=== PATIENT | male | born 1960 | race Caucasian/White ===

== ENCOUNTER 2016-09-05 14:23 | Emergency (ER) | payer OTHER ==
[~2016-09-05] VITALS: Ht 175.3 cm; Wt 109.3 kg
[2016-09-05] MEDS ORDERED: LORAZEPAM INJ 2 MG/ML VIAL ONE (14:48)
[2016-09-05 14:53] LABS: BASOPHILS % (AUTO) 0.3 % (0.0-2.0); EOSINOPHILS # (AUTO) 0.2 /CMM (0.0-0.7); EOSINOPHILS % (AUTO) 3.6 % (0.0-6.0); HEMATOCRIT 41 % (39-51); HEMOGLOBIN 13.8 g/dL (13.5-17.5); LYMPHOCYTES # (AUTO) 0.9 /CMM (0.8-4.8); LYMPHOCYTES % (AUTO) 21.5 % (20.0-44.0); MEAN CORPUSCULAR HEMOGLOBIN 32 PG (26.0-33.0); MEAN CORPUSCULAR HGB CONC 34 g/dl (31.0-36.0); MEAN CORPUSCULAR VOLUME 94 fL (80-96); MONOCYTES # (AUTO) 0.3 /CMM (0.1-1.30); MONOCYTES % (AUTO) 8.1 % (2.0-12.0); NEUTROPHILS # (AUTO) 2.8 /CMM (1.8-8.9); NEUTROPHILS % (AUTO) 66.5 % (43.0-81.0); PLATELET COUNT (AUTO) 103 /CMM (150-450); RDW COEFFICIENT OF VARIATION 14.5 (11.5-15.0); RED BLOOD CELL COUNT(AUTO) 4.38 MIL/uL (4.5-6.0); WHITE BLOOD COUNT (AUTO) 4.2 K/uL (4.3-11.0)
[2016-09-05] MEDS ORDERED: LORAZEPAM INJ 2 MG/ML VIAL IVP ONE (15:00)
--- NOTE | 2016-09-05 15:00 | NUR ---
PT BIB C/O "ALCOHOL WITHDRAWAL" INCLUDING FEELING SHAKEY, DIAPHORETIC, AND MILD SOB. SKIN MOIST AND WARM. RESP EVEN, MILDLY LABORED. O2 WNL ON ROOM AIR. PT REPORTS DRINKING 3-12 BEERS PER DAY. LAST DRINK WAS THIS MORNING, 1 BEER. AMBULATORY WITH STEADY GAIT. A/OX4. NO SEIZURE ACTIVITY NOTED. IN ER BED 08 ON MONITOR.
[2016-09-05 15:05] LABS: CALCIUM, SERUM 8.7 mg/dL (8.5-10.1); CREATININE 1.2 mg/dL (0.6-1.3); POTASSIUM 4.5 mmol/L (3.5-5.1)
[2016-09-05] MEDS ORDERED: IV NS 0.9% 1,000 ML ONE (15:09)
[2016-09-05] MEDS ORDERED: IV SET PRIMARY 1 EA INFUS.SET MC ONE (15:09)
[2016-09-05] MEDS ORDERED: IV NS 0.9% 1,000 ML BAG IV ONE (15:30)
--- NOTE | 2016-09-05 16:31 | NUR ---
Patient discharged to home in stable condition. Written and verbal after care instructions given. Patient verbalizes understanding of instruction. IV removed. Catheter intact and site benign. Pressure and 4x4 applied to site. No bleeding noted. AMBULATORY WITH STEADY GAIT. NO FURTHER WITHDRAWAL SYMPTOMS NOTED. VSS.
[2016-09-05 16:42] VITALS: BP 155/79
== END 2016-09-05 16:43 | disposition home or self-care (01) ==
LOC: ER 14:25
DX: E11.65 Type 2 diabetes mellitus with hyperglycemia (principal); F10.10 Alcohol abuse, uncomplicated; F41.9 Anxiety disorder, unspecified; I10 Essential (primary) hypertension; Z90.49 Acquired absence of other specified parts of digestive tract
CPT/HCPCS: 36415; 80048; 85025; 93005; 96361; 96374; 99285; A4606; G0480; J2060; J7030; Z7610

== ENCOUNTER 2016-09-25 01:47 | Emergency (ER) | payer OTHER ==
[~2016-09-25] VITALS: Ht 177.8 cm; Wt 90.7 kg
--- NOTE | 2016-09-25 01:50 | NUR ---
to bed 4 ambulatory c/o woke up with anxiety, pt appears very anxious. pt aaox4 no acute distress noted, resp even and unlabored. place pt on cardiac monitoring, continuous pox. pending er md quintanilla.
--- NOTE | 2016-09-25 02:35 | NUR ---
started sl 18g to R hand, blood drawn and sent to lab.
[2016-09-25] MEDS ORDERED: IV NS 0.9% 1,000 ML ONE (02:42)
[2016-09-25] MEDS ORDERED: IV SET PRIMARY 1 EA INFUS.SET MC ONE (02:42)
--- NOTE | 2016-09-25 02:47 | NUR ---
pt medicated as ordered.
[2016-09-25 02:50] LABS: BASOPHILS % (AUTO) 0.8 % (0.0-2.0); EOSINOPHILS # (AUTO) 0.2 /CMM (0.0-0.7); EOSINOPHILS % (AUTO) 3.5 % (0.0-6.0); HEMATOCRIT 40 % (39-51); HEMOGLOBIN 13.8 g/dL (13.5-17.5); LYMPHOCYTES # (AUTO) 0.9 /CMM (0.8-4.8); LYMPHOCYTES % (AUTO) 18.9 % (20.0-44.0); MEAN CORPUSCULAR HEMOGLOBIN 33 PG (26.0-33.0); MEAN CORPUSCULAR HGB CONC 35 g/dl (31.0-36.0); MEAN CORPUSCULAR VOLUME 94 fL (80-96); MONOCYTES # (AUTO) 0.5 /CMM (0.1-1.30); MONOCYTES % (AUTO) 9.3 % (2.0-12.0); NEUTROPHILS # (AUTO) 3.4 /CMM (1.8-8.9); NEUTROPHILS % (AUTO) 67.5 % (43.0-81.0); PLATELET COUNT (AUTO) 106 /CMM (150-450); RDW COEFFICIENT OF VARIATION 14.2 (11.5-15.0); RED BLOOD CELL COUNT(AUTO) 4.25 MIL/uL (4.5-6.0)
[2016-09-25 02:59] LABS: CALCIUM, SERUM 8.6 mg/dL (8.5-10.1); CREATININE 0.9 mg/dL (0.6-1.3); POTASSIUM 4.2 mmol/L (3.5-5.1)
[2016-09-25] MEDS ORDERED: IV NS 0.9% 1,000 ML BAG IV ONE (03:00)
--- NOTE | 2016-09-25 04:34 | NUR ---
Patient discharged to home in stable condition. Written and verbal after care instructions given. Patient verbalizes understanding of instruction. ambulatory with a steady gait noted. pt aaox4 no acute distress noted, resp even and unlabored.
[2016-09-25 04:48] VITALS: BP 159/83
== END 2016-09-25 04:49 | disposition home or self-care (01) ==
LOC: ER 01:49
DX: F41.9 Anxiety disorder, unspecified (principal); E11.65 Type 2 diabetes mellitus with hyperglycemia; I10 Essential (primary) hypertension; Z90.49 Acquired absence of other specified parts of digestive tract
CPT/HCPCS: 36415; 80048-TC; 82962-TC; 85025-TC; A4606; J7030; Z7610

== ENCOUNTER 2017-02-15 19:41 | Emergency (ER) | payer OTHER ==
[~2017-02-15] VITALS: Ht 175.3 cm; Wt 111.1 kg
--- NOTE | 2017-02-15 19:45 | NUR ---
PT CAME IN FROM HOME C/O DYSURIA X'S 1 WEEK W/O DISCHARGE/HEMATURIA. DENIES INJURY TO LOCATION. PELVIS/ABDOMEN NON TENDER/NON DISTENDED.
[2017-02-15 19:59] LABS: APPEARANCE,URINE Slightly Cloudy (CLEAR); BILIRUBIN,URINE Negative (NEGATIVE); BLOOD, URINE Negative Ery/uL (NEGATIVE); COLOR,URINE Yellow (YELLOW); KETONES,URINE Negative (NEGATIVE); LEUKOCYTE ESTERASE ,URINE Negative (NEGATIVE); NITRITE, URINE Negative (NEGATIVE); PROTEIN,URINE Negative (NEGATIVE); UGLUCOSE 500 MG/DL mg/dL (NEGATIVE); UROBILINOGEN,URINE 0.2 EU/dL (0.2)
[2017-02-15 20:39] LABS: BASOPHILS % (AUTO) 0.7 % (0.0-2.0); EOSINOPHILS # (AUTO) 0.1 /CMM (0.0-0.7); EOSINOPHILS % (AUTO) 2.8 % (0.0-6.0); HEMATOCRIT 42 % (39-51); HEMOGLOBIN 14.2 g/dL (13.5-17.5); LYMPHOCYTES # (AUTO) 0.9 /CMM (0.8-4.8); LYMPHOCYTES % (AUTO) 19.3 % (20.0-44.0); MEAN CORPUSCULAR HEMOGLOBIN 33 PG (26.0-33.0); MEAN CORPUSCULAR HGB CONC 34 g/dl (31.0-36.0); MEAN CORPUSCULAR VOLUME 95 fL (80-96); MONOCYTES # (AUTO) 0.5 /CMM (0.1-1.30); MONOCYTES % (AUTO) 9.9 % (2.0-12.0); NEUTROPHILS # (AUTO) 3.1 /CMM (1.8-8.9); NEUTROPHILS % (AUTO) 67.3 % (43.0-81.0); PLATELET COUNT (AUTO) 120 /CMM (150-450); RDW COEFFICIENT OF VARIATION 13.2 (11.5-15.0); RED BLOOD CELL COUNT(AUTO) 4.36 MIL/uL (4.5-6.0); WHITE BLOOD COUNT (AUTO) 4.6 K/uL (4.3-11.0)
[2017-02-15 20:44] LABS: CALCIUM, SERUM 8.9 mg/dL (8.5-10.1); CREATININE 0.9 mg/dL (0.6-1.3)
[2017-02-15 21:20] VITALS: BP 133/95
== END 2017-02-15 21:22 | disposition home or self-care (01) ==
LOC: ER 19:43
DX: E11.65 Type 2 diabetes mellitus with hyperglycemia (principal); F41.9 Anxiety disorder, unspecified; I10 Essential (primary) hypertension; Z90.49 Acquired absence of other specified parts of digestive tract
CPT/HCPCS: 36415; 80048-TC; 81000-TC; 82962-TC; 85025-TC; A4606; Z7610

== ENCOUNTER 2017-12-17 19:00 | Emergency (ER) | payer OTHER ==
[~2017-12-17] VITALS: Ht 175.3 cm; Wt 109.8 kg
--- NOTE | 2017-12-17 19:05 | NUR ---
PT AMBULATORY TO ER BED 12. C/O HEADACHE FOR SEVERAL DAYS NOW. PT ALSO ENDORSES DIFFICULTY SLEEPING AT NIGHT TIME. DENIES CHEST PAIN. HYPERTENSIVE CAMPUS INTERVIEWS INTERN. PLACED ON MONITOR. AWAITING MD SCHULTE.
--- NOTE | 2017-12-17 19:30 | NUR ---
DR PUENTE AT BEDSIDE FOR EVAL.
--- NOTE | 2017-12-17 19:50 | NUR ---
CONSTRUCTION PROJECT ADMINISTRATOR AT BEDSIDE FOR BLOOD DRAW.
[2017-12-17 19:57] LABS: BASOPHILS % (AUTO) 0.1 % (0.0-2.0); EOSINOPHILS % (AUTO) 1.9 % (0.0-6.0); HEMATOCRIT 39 % (39-51); HEMOGLOBIN 12.9 g/dL (13.5-17.5); LYMPHOCYTES # (AUTO) 0.6 /CMM (0.8-4.8); LYMPHOCYTES % (AUTO) 13.6 % (20.0-44.0); MEAN CORPUSCULAR HEMOGLOBIN 30 PG (26.0-33.0); MEAN CORPUSCULAR HGB CONC 33 g/dl (31.0-36.0); MEAN CORPUSCULAR VOLUME 92 fL (80-96); MONOCYTES # (AUTO) 0.4 /CMM (0.1-1.30); MONOCYTES % (AUTO) 9.1 % (2.0-12.0); NEUTROPHILS # (AUTO) 3.1 /CMM (1.8-8.9); NEUTROPHILS % (AUTO) 75.3 % (43.0-81.0); PLATELET COUNT (AUTO) 116 /CMM (150-450); RDW COEFFICIENT OF VARIATION 13.2 (11.5-15.0); RED BLOOD CELL COUNT(AUTO) 4.25 MIL/uL (4.5-6.0); WHITE BLOOD COUNT (AUTO) 4.2 K/uL (4.3-11.0)
[2017-12-17 20:11] LABS: APPEARANCE,URINE Clear (CLEAR); BILIRUBIN,URINE Negative (NEGATIVE); BLOOD, URINE Negative Ery/uL (NEGATIVE); COLOR,URINE Yellow (YELLOW); KETONES,URINE Negative (NEGATIVE); LEUKOCYTE ESTERASE ,URINE Negative (NEGATIVE); NITRITE, URINE Negative (NEGATIVE); PH,URINE 5.5 (5.0-8.0); PROTEIN,URINE Negative (NEGATIVE); UGLUCOSE Negative (NEGATIVE); UROBILINOGEN,URINE 0.2 EU/dL (0.2)
[2017-12-17 20:12] LABS: CALCIUM, SERUM 8.9 mg/dL (8.5-10.1); CREATININE 0.9 mg/dL (0.6-1.3); POTASSIUM 4.6 mmol/L (3.5-5.1)
[2017-12-17] MEDS ORDERED: METOCLOPRAMIDE HCL 10 MG/2 ML VIAL IM ONE (20:30)
[2017-12-17] MEDS ORDERED: LORAZEPAM 1 MG TABLET PO ONE (20:30)
[2017-12-17] MEDS ORDERED: LORAZEPAM 1 MG TABLET ONE (20:32)
[2017-12-17] MEDS ORDERED: METOCLOPRAMIDE HCL 10 MG/2 ML VIAL ONE (20:32)
[2017-12-17] MEDS ORDERED: IV NS 0.9% 1,000 ML BAG IV ONE (21:00)
[2017-12-17 22:10] VITALS: BP 152/86
--- NOTE | 2017-12-17 22:10 | NUR ---
Patient discharged to home in stable condition. Written and verbal after care instructions given. Patient verbalizes understanding of instruction.IV removed. Catheter intact and site benign. Pressure and 4x4 applied to site. No bleeding noted.
== END 2017-12-17 22:11 | disposition home or self-care (01) ==
LOC: ER 19:07
DX: E87.1 Hypo-osmolality and hyponatremia (principal); I10 Essential (primary) hypertension; E11.9 Type 2 diabetes mellitus without complications; F41.9 Anxiety disorder, unspecified; Z90.49 Acquired absence of other specified parts of digestive tract
CPT/HCPCS: 36415; 80048; 81001; 85025; 96372; 99284; A4606; J2765; J7030; Z7610; 81000-TC

== ENCOUNTER 2020-09-09 06:42 | Emergency (ER) | payer MEDICAID, OTHER ==
[~2020-09-09] VITALS: Ht 175.3 cm; Wt 113.4 kg
--- NOTE | 2020-09-09 06:46 | NUR ---
BIBS FOR "I THINK I'M DEHYDRATED BECAUSE GAVE ME A WATER PILL. I COULD HEAR MY HEART BIT AND DID NOT SLEEP LAST NIGHT"
[2020-09-09 07:25] LABS: BASOPHILS % (AUTO) 0.7 % (0.0-2.0); EOSINOPHILS % (AUTO) 3.9 % (0.0-6.0); HEMATOCRIT 34 % (39-51); LYMPHOCYTES # (AUTO) 0.7 /CMM (0.8-4.8); LYMPHOCYTES % (AUTO) 20.1 % (20.0-44.0); MEAN CORPUSCULAR HGB CONC 33 g/dl (31.0-36.0); MEAN CORPUSCULAR VOLUME 84 fL (80-96); MONOCYTES # (AUTO) 0.4 /CMM (0.1-1.30); MONOCYTES % (AUTO) 11.2 % (2.0-12.0); NEUTROPHILS # (AUTO) 2.4 /CMM (1.8-8.9); NEUTROPHILS % (AUTO) 64.1 % (43.0-81.0); PLATELET COUNT (AUTO) 106 /CMM (150-450); RED BLOOD CELL COUNT(AUTO) 4.02 MIL/uL (4.5-6.0); WHITE BLOOD COUNT (AUTO) 3.7 K/uL (4.3-11.0)
[2020-09-09 07:41] LABS: CALCIUM, SERUM 8.7 mg/dL (8.5-10.1); CARBON DIOXIDE 27 mmol/L (21-32); CHLORIDE 84 mmol/L (98-107); CREATININE 0.9 mg/dL (0.6-1.3); GLUCOSE 205 mg/dL (74-106); POTASSIUM 4.2 mmol/L (3.5-5.1); SODIUM SERUM 122 mmol/L (136-145); UREA NITROGEN, BLOOD 7 mg/dL (7-18)
--- NOTE | 2020-09-09 07:41 | NUR ---
THE PATIENT IS IN ER BED # 1. ALERT AND ORIENTED X4. DENIES PAIN. IN ROOM AIR AND DENIES SOB. RESPIRATION REGULAR AND UNLABORED. WILL CONTINUE TO MONITOR THE PATIENT.
[2020-09-09 08:00] VITALS: BP 144/76
== END 2020-09-09 10:10 | disposition home or self-care (01) ==
LOC: ER 06:46
DX: R00.2 Palpitations (principal); D61.818 Other pancytopenia; E87.1 Hypo-osmolality and hyponatremia; E11.65 Type 2 diabetes mellitus with hyperglycemia; R60.0 Localized edema; I10 Essential (primary) hypertension; F41.9 Anxiety disorder, unspecified; Z90.49 Acquired absence of other specified parts of digestive tract; Z60.2 Problems related to living alone
CPT/HCPCS: 36415; 71045-TC; 80048-TC; 84484-TC; 85025-TC

== ENCOUNTER 2021-12-15 03:28 | Emergency (ER) | payer MEDICAID ==
[~2021-12-15] VITALS: Ht 175.3 cm; Wt 112.0 kg
--- NOTE | 2021-12-15 03:47 | NUR ---
BIBS C/O PALPIATATIONS AND SOB, BELIEVES IT MAY BE RELATED TO SECOND HAND SMOKE FROM HIS APARTMENTS VENTS. PT AWAKE AND ALERT X4 IN NO RESPIRITORY DISTRESS AMBULATORY WITH STEADY GAIT. PLACED ON MONITOR AND V/S WNL.
--- NOTE | 2021-12-15 03:48 | NUR ---
URINE COLLECTED AND SENT TO LAB
--- NOTE | 2021-12-15 03:58 | NUR ---
20G IV LINE ESTABLISHED RAC. BLOOD DRAWN AND SENT TO LAB.
[2021-12-15 04:30] LABS: BASOPHILS % (AUTO) 1.1 % (0.0-2.0); EOSINOPHILS % (AUTO) 3.2 % (0.0-6.0); HEMATOCRIT 31 % (39-51); HEMOGLOBIN 9.8 g/dL (13.5-17.5); LYMPHOCYTES # (AUTO) 0.8 K/uL (0.8-4.8); LYMPHOCYTES % (AUTO) 21.3 % (20.0-44.0); MEAN CORPUSCULAR HGB CONC 32 g/dl (31.0-36.0); MEAN CORPUSCULAR VOLUME 73 fL (80-96); MONOCYTES # (AUTO) 0.5 K/uL (0.1-1.30); MONOCYTES % (AUTO) 12.7 % (2.0-12.0); NEUTROPHILS # (AUTO) 2.3 K/uL (1.8-8.9); NEUTROPHILS % (AUTO) 61.7 % (43.0-81.0); PLATELET COUNT (AUTO) 122 K/uL (150-450); RED BLOOD CELL COUNT(AUTO) 4.25 MIL/uL (4.5-6.0); WHITE BLOOD COUNT (AUTO) 3.7 K/uL (4.3-11.0)
[2021-12-15 04:56] LABS: CALCIUM, SERUM 8.7 mg/dL (8.5-10.1); CARBON DIOXIDE 26 mmol/L (21-32); CHLORIDE 87 mmol/L (98-107); CREATININE 1.2 mg/dL (0.6-1.3); GLUCOSE 164 mg/dL (74-106); SODIUM SERUM 124 mmol/L (136-145); UREA NITROGEN, BLOOD 9 mg/dL (7-18)
--- NOTE | 2021-12-15 05:16 | NUR ---
COVID SWAB COLLECTED AND SENT TO LAB
[2021-12-15] MEDS ORDERED: IV NS 0.9% 1,000 ML BAG IV ONE (05:30)
--- NOTE | 2021-12-15 06:05 | NUR ---
Patient does not wish to proceed with medical care recommended by Dr. Lynn. Patient given information related to possible complications, up to and including , which could occur as a result of leaving the hospital at this time. Patient verbalizes understanding of risks involved due to leaving against medical advice. Patient has signed AMA form.IV removed. Catheter intact and site benign. Pressure and 4x4 applied to site. No bleeding noted.
[2021-12-15 06:25] VITALS: BP 153/87
== END 2021-12-15 06:11 | disposition left against medical advice (07) ==
LOC: ER 03:31
DX: E87.1 Hypo-osmolality and hyponatremia (principal); R00.2 Palpitations; Z20.822 Contact with and (suspected) exposure to COVID-19; D50.9 Iron deficiency anemia, unspecified; D72.819 Decreased white blood cell count, unspecified; Z90.49 Acquired absence of other specified parts of digestive tract; E11.9 Type 2 diabetes mellitus without complications; I10 Essential (primary) hypertension
CPT/HCPCS: 99285; 71045; 87426; 93005; 85025; 80048; 36415; 84484; 80307; J7040; C9803

== ENCOUNTER 2022-02-13 05:53 | Emergency (ER) | payer MEDICAID ==
[~2022-02-13] VITALS: Ht 175.3 cm; Wt 117.9 kg
--- NOTE | 2022-02-13 06:20 | NUR ---
SHAUN C/O SOB FOR THE PAST FEW DAYS HAS DOC APPT. NEXT WEEK. PATIENT IS AAOX4. ABLE TO MAKE NEEDS KNOWN. GOOD HISTORIAN. -CP. VITALS CHECKED.
--- NOTE | 2022-02-13 06:45 | NUR ---
URBAN PLANNING TEACHER AT BEDSIDE
--- NOTE | 2022-02-13 06:57 | NUR ---
COVID SWAB DONE.
[2022-02-13 07:09] LABS: BASOPHILS % (AUTO) 0.7 % (0.0-2.0); EOSINOPHILS % (AUTO) 3.6 % (0.0-6.0); HEMATOCRIT 29 % (39-51); LYMPHOCYTES # (AUTO) 0.6 K/uL (0.8-4.8); MEAN CORPUSCULAR HGB CONC 32 g/dl (31.0-36.0); MEAN CORPUSCULAR VOLUME 73 fL (80-96); MONOCYTES # (AUTO) 0.4 K/uL (0.1-1.30); MONOCYTES % (AUTO) 12.7 % (2.0-12.0); NEUTROPHILS # (AUTO) 2.4 K/uL (1.8-8.9); PLATELET COUNT (AUTO) 117 K/uL (150-450); RED BLOOD CELL COUNT(AUTO) 3.93 MIL/uL (4.5-6.0); WHITE BLOOD COUNT (AUTO) 3.5 K/uL (4.3-11.0)
[2022-02-13 07:40] LABS: CALCIUM, SERUM 8.7 mg/dL (8.5-10.1); CARBON DIOXIDE 25 mmol/L (21-32); CHLORIDE 84 mmol/L (98-107); CREATININE 1.1 mg/dL (0.6-1.3); GLUCOSE 259 mg/dL (74-106); POTASSIUM 4.3 mmol/L (3.5-5.1); UREA NITROGEN, BLOOD 9 mg/dL (7-18)
[2022-02-13 08:04] LABS: SODIUM SERUM 119 mmol/L (136-145)
--- NOTE | 2022-02-13 08:15 | NUR ---
PT AMBULATORY W/ STEADY GAIT, ABLE TO GO TO THE RESTROOM
--- NOTE | 2022-02-13 08:20 | NUR ---
MOVE SHEET SUBMITTED.
[2022-02-13] MEDS ORDERED: ASPIRIN 325 MG TABLET ONE (08:27)
[2022-02-13] MEDS ORDERED: ASPIRIN 325 MG TABLET PO ONE (08:30)
[2022-02-13] MEDS ORDERED: NITROGLYCERIN 30 GM TUBE TP SCH (08:30)
--- NOTE | 2022-02-13 08:30 | NUR ---
IV LINE ESTABLISHED LAC #20
[2022-02-13] MEDS ORDERED: HYDR100T27 PO (08:35)
[2022-02-13] MEDS ORDERED: HYDR25TA4 PO (08:35)
[2022-02-13] MEDS ORDERED: ATEN100T PO (08:35)
[2022-02-13] MEDS ORDERED: LOSA100T31 PO (08:35)
[2022-02-13] MEDS ORDERED: METF-442 PO (08:35)
[2022-02-13] MEDS ORDERED: SIMV-46 PO (08:35)
[2022-02-13] MEDS ORDERED: TRAZ-182 PO (08:35)
--- NOTE | 2022-02-13 08:55 | NUR ---
PT HAS NO COMPLAINT OF CHEST PAIN AT THIS TIME.
[2022-02-13 09:02] LABS: BAND % (MANUAL) 1 % (0.0-5.0); EOSINOPHILS % (MANUAL) 4 % (0-4); LYMPHOCYTES % (MANUAL) 19 % (16-48); MONOCYTES % (MANUAL) 4 % (0-11.0); NEUTROPHILS % (MANUAL) 72 (42-76)
[2022-02-13] MEDS ORDERED: ASPI-992 PO (09:24)
--- NOTE | 2022-02-13 09:33 | NUR ---
PER DR GUERRERO, PT IS LEAVING AMA.
--- NOTE | 2022-02-13 09:40 | NUR ---
IV removed. Catheter intact and site benign. Pressure and 4x4 applied to site. No bleeding noted.
--- NOTE | 2022-02-13 09:41 | NUR ---
Patient does not wish to proceed with medical care recommended by Dr. Gómez. Patient given information related to possible complications, up to and including , which could occur as a result of leaving the hospital at this time. Patient verbalizes understanding of risks involved due to leaving against medical advice. Patient has signed AMA form.
[2022-02-13 09:42] VITALS: BP 145/80
== END 2022-02-13 09:42 | disposition left against medical advice (07) ==
LOC: ER 05:57
DX: I21.4 Non-ST elevation (NSTEMI) myocardial infarction (principal); E87.1 Hypo-osmolality and hyponatremia; R06.00 Dyspnea, unspecified; Z20.822 Contact with and (suspected) exposure to COVID-19; Z90.49 Acquired absence of other specified parts of digestive tract; E11.9 Type 2 diabetes mellitus without complications; I11.9 Hypertensive heart disease without heart failure; Z79.82 Long term (current) use of aspirin; Z79.84 Long term (current) use of oral hypoglycemic drugs; Z79.899 Other long term (current) drug therapy; Z53.29 Procedure and treatment not carried out because of patient's decision for other reasons
CPT/HCPCS: 99285; 71045; 87426; 93005; 85025; 80048; 85378; 36415; 84484; 83880; 85007; C9803

== ENCOUNTER 2022-06-27 17:44 | Inpatient (IN) | payer MEDICAID ==
[~2022-06-27] VITALS: Ht 175.3 cm; Wt 132.1 kg
[~2022-06-27 17:44] MED LIST: ASPI-992 PO; ATEN100T PO; HYDR100T27 PO; HYDR25TA4 PO; LOSA100T31 PO; METF-442 PO; SIMV-46 PO; TRAZ-182 PO
--- NOTE | 2022-06-27 17:57 | NUR ---
"Been Feeling SOB xweek or so. Swollen for a while"
--- NOTE | 2022-06-27 18:22 | NUR ---
softball player at bedside
[2022-06-27] MEDS ORDERED: FUROSEMIDE 40 MG/4 ML VIAL ONE (18:24)
[2022-06-27] MEDS ORDERED: FUROSEMIDE 40 MG/4 ML VIAL IV ONE (18:30)
--- NOTE | 2022-06-27 18:32 | NUR ---
Blood drawn and sent to lab.
--- NOTE | 2022-06-27 18:45 | NUR ---
MOVE SHEET SUBMITTED.
[2022-06-27 18:51] LABS: CALCIUM, SERUM 8.9 mg/dL (8.5-10.1); CARBON DIOXIDE 30 mmol/L (21-32); CHLORIDE 89 mmol/L (98-107); CREATININE 1.2 mg/dL (0.6-1.3); GLUCOSE 226 mg/dL (74-106); POTASSIUM 4.4 mmol/L (3.5-5.1); SODIUM SERUM 124 mmol/L (136-145); UREA NITROGEN, BLOOD 20 mg/dL (7-18)
[2022-06-27] MEDS ORDERED: ALBU18HF2 IH (18:55)
[2022-06-27] MEDS ORDERED: GLYB2.5T4 PO (18:55)
[2022-06-27 18:57] LABS: ALANINE AMINOTRANSFERASE 27 U/L (12-78); ALBUMIN 3.5 g/dL (3.4-5.0); ALKALINE PHOSPHATASE 61 U/L (46-116); ASPARTATE AMINOTRANSFERASE 24 U/L (15-37); BILIRUBIN,DIRECT 0.2 mg/dL (0.0-0.2); BILIRUBIN,TOTAL 0.4 mg/dL (0.2-1.0); TOTAL PROTEIN, SERUM 7.1 g/dL (6.4-8.2)
[2022-06-27] MEDS ORDERED: NALOXONE PREFILLED SYRINGE 2 MG/2 ML SYRINGE ONE (19:11)
[2022-06-27 20:14] LABS: BASOPHILS % (AUTO) 0.4 % (0.0-2.0); EOSINOPHILS % (AUTO) 0.9 % (0.0-6.0); HEMATOCRIT 26 % (39-51); HEMOGLOBIN 7.9 g/dL (13.5-17.5); LYMPHOCYTES # (AUTO) 0.3 K/uL (0.8-4.8); LYMPHOCYTES % (AUTO) 6.2 % (20.0-44.0); MEAN CORPUSCULAR HGB CONC 30 g/dl (31.0-36.0); MEAN CORPUSCULAR VOLUME 67 fL (80-96); MONOCYTES # (AUTO) 0.6 K/uL (0.1-1.30); MONOCYTES % (AUTO) 11.9 % (2.0-12.0); NEUTROPHILS # (AUTO) 4.2 K/uL (1.8-8.9); NEUTROPHILS % (AUTO) 80.6 % (43.0-81.0); PLATELET COUNT (AUTO) 162 K/uL (150-450); RED BLOOD CELL COUNT(AUTO) 3.93 MIL/uL (4.5-6.0); WHITE BLOOD COUNT (AUTO) 5.2 K/uL (4.3-11.0)
--- NOTE | 2022-06-27 20:15 | NUR ---
309-2 PER NURSING OFFICE
--- NOTE | 2022-06-27 20:26 | NUR ---
REPORT GIVEN TO AMITA DOMINGO. PATIENT WILL BE TRANSFERRED BETWEEN 2044-.
[2022-06-27 20:35] LABS: BAND % (MANUAL) 1 % (0.0-5.0); LYMPHOCYTES % (MANUAL) 7 % (16-48); MONOCYTES % (MANUAL) 5 % (0-11.0); NEUTROPHILS % (MANUAL) 87 (42-76)
[2022-06-27 20:55] VITALS: BP 157/84
[2022-06-27] MEDS ORDERED: ZOLPIDEM TARTRATE 5 MG TABLET PO PRN (21:00)
[2022-06-27] MEDS ORDERED: ONDANSETRON HCL/PF 4 MG/2 ML VIAL IVP PRN (21:00)
[2022-06-27] MEDS ORDERED: Z GUARD REMEDY 4 OZ OINT TP PRN (21:00)
[2022-06-27] MEDS ORDERED: ACETAMINOPHEN 325 MG TABLET PO PRN (21:00)
[2022-06-27] MEDS ORDERED: ALBUTEROL FS 2.5 MG/3 ML VIAL.NEB NEB PRN (21:00)
[2022-06-27] MEDS ORDERED: DEXTROSE 50%-WATER 50 ML DISP.SYRIN IV PRN (21:00)
[2022-06-27] MEDS ORDERED: MAGNESIUM HYDROXIDE 30 ML UDC PO PRN (21:00)
[2022-06-27] MEDS ORDERED: MAG HYDROX/AL HYDROX/SIMETH 30 ML UDC PO PRN (21:00)
--- NOTE | 2022-06-27 21:25 | NUR ---
TRANSFERRED TO ROOM VIA ACLS PROTOCOL
[2022-06-27] MEDS: ENOXAPARIN SODIUM 40 MG/0.4 ML DISP.SYRIN SQ SCH (21:34)
[2022-06-27] MEDS: TRAZODONE 50 MG TABLET PO SCH (21:35)
[2022-06-27] MEDS: BLOOD SUGAR DIAGNOSTIC 1 EACH STRIP IN SCH (22:44)
[2022-06-27] MEDS: INSULIN REGULAR, HUMAN 100 UNIT/ML 3 ML VIAL SQ PRN (22:48)
[2022-06-28] VITALS (7 sets, daily range): BP systolic 112–146; BP diastolic 59–89
--- NOTE | 2022-06-28 00:10 | NUR ---
ADMISSION NOTE PATIENT CAME IN IN THE UNIT AT AROUND 2054, ACCOMPANIED BY 2 ER PERSONNELS AND 2 FAMILY MEMBERS, VIA [employer]. PATIENT IS A/OX4. AMBULATORY WITH SOB, IN 2LPM OF O2 VIA NC. PATIENT ABDOMENT VERY DISTENDED AND HARD UPON PALPITATION. PATIENT DENIES ANY CHEST PAIN. PER PATIENT "I DID NOT CAME HERE FOR MY HEART. I CAME IN FOR MY KNEE AND THE WOUND". PER PATIENT HE SEES A ITALIAN TEACHER OUTSIDE THE HOSPITAL AND THE SWELLING STARTED 2 MONTHS WHEN HIS ITALIAN TEACHER STOPPED HIS FUROSEMIDE. PATIENT READING NSR IN THE TELE MONITOR WITH 88BPM. WISHES TO BE FULL CODE. NEW ID BAND ON PATIENT. R. AC #2OG ACCESS NOTED-- IN SALINE LOCK. BELONGINGS CHECKED AND SIGNED FOR-- PATIENT HAS $55 WITH HIM. DENIES SMOKING BUT REPORTS DRINKING 3 BOTTLES OF BEER DAILY. PATIENT REFUSED FLU VACCINE BUT UP-TO DATE WITH HIS COVID SHOTS. PATIENT ORIENTED IN THE UNIT AND THE USE OF CALL LIGHT. PATIENT REFUSED TO PUT SIDE RAILS UP-- HENCE ONLY 1 SIDERAIL UP FOR NOW. SKIN ASSESSMENT DONE-- PICTURES TAKEN. NEEDS ATTENDED FOR NOW. WILL FOLLOW THROUGH DOCTOR'S ORDERS AND WILL CONTINUE WITH THE PLAN OF CARE FOR PATIENT.
--- NOTE | 2022-06-28 00:24 | NUR ---
noc rn note patient refused to give in his home medications. would rather have someone to take it home. and per patient "I'm not going to stay here for too long anyways". patient teaching done of the hospital policy and oriented with the long possible stay in the hospital. patient acknowledged. med recon done in the ER.
[2022-06-28] MEDS: HYDROCODONE/APAP 10/325MG TABLET PO PRN ×2 (04:37→17:07)
--- NOTE | 2022-06-28 04:37 | NUR ---
noc rn note patient c/o 8/10 pain in his left popliteal with wound. has no PRN, made auto transmission technician Josette Eubanks and ordered Revelo 10 q6 PRN. Order carried out. will re-assess.
[2022-06-28 05:49] LABS: BASOPHILS % (AUTO) 0.6 % (0.0-2.0); HEMATOCRIT 25 % (39-51); HEMOGLOBIN 7.4 g/dL (13.5-17.5); LYMPHOCYTES # (AUTO) 0.4 K/uL (0.8-4.8); LYMPHOCYTES % (AUTO) 9.8 % (20.0-44.0); MEAN CORPUSCULAR HGB CONC 30 g/dl (31.0-36.0); MEAN CORPUSCULAR VOLUME 67 fL (80-96); MONOCYTES # (AUTO) 0.6 K/uL (0.1-1.30); MONOCYTES % (AUTO) 14.5 % (2.0-12.0); NEUTROPHILS # (AUTO) 2.9 K/uL (1.8-8.9); NEUTROPHILS % (AUTO) 73.1 % (43.0-81.0); PLATELET COUNT (AUTO) 147 K/uL (150-450); RED BLOOD CELL COUNT(AUTO) 3.73 MIL/uL (4.5-6.0); WHITE BLOOD COUNT (AUTO) 3.9 K/uL (4.3-11.0)
[2022-06-28 06:05] LABS: IRON, SERUM 13 ug/dl (50-175); TOTAL IRON BINDING CAPACITY 443 ug/dl (250-450)
[2022-06-28 06:07] LABS: CREATININE 1.1 mg/dL (0.6-1.3); MAGNESIUM 1.5 mg/dL (1.8-2.4); PHOSPHORUS 5.3 mg/dL (2.5-4.9)
--- NOTE | 2022-06-28 06:38 | NUR ---
LASIX 4 MG DUE @ 0700 WAS NOT PULLED OUT OF THE OMNICELL DUE TO THE LID THAT DOESNT WANT TO OPEN. PHARMACY WAS INFORMED AND GAVE INSTRUCTION TO DOCUMENT NON ADMIN AND ASK FOR A NEW ORDER.
[2022-06-28] MEDS ORDERED: FUROSEMIDE 40 MG/4 ML VIAL IV ONE ×2 (07:00)
[2022-06-28] MEDS: BLOOD SUGAR DIAGNOSTIC 1 EACH STRIP IN SCH ×4 (07:01→21:27)
--- NOTE | 2022-06-28 07:02 | NUR ---
noc rn note Lasix given at this time. bp 130/75, hr-78.
--- NOTE | 2022-06-28 07:04 | NUR ---
RN CLOSING NOTES PT IS DOZING OFF INTERMITTENTLY. A/O X 4, ABLE TO MAKE NEEDS KNOWN, RESPONSIVE AND ABLE TO FOLLOW COMMANDS. PT IS ON NC 2L O2, TOLERATING WELL, BREATHING EVEN & UNLABORED @ THIS TIME. PT IV ACCESS IS @ RAC #20G SALINE LOCK, PATENT, INTACT AND FLUSHES WELL. EXTERNAL PRETZEL TWISTER IN PLACE, CURRENT READING IS SR 76. MEDICATIONS IS GIVEN ORDERED. SAFETY MEASURES INITIATED. BED PLACED IN LOWEST AND LOCK POSITION, SIDERAILS UP X 2, BESIDE TABLE AND CALL LIGHT WITHIN REACH, BED ALARM IS ON. WILL ENDORSE TO THE NEXT SHIFT FOR CONTINUITY OF CARE.
[2022-06-28] MEDS: INSULIN REGULAR, HUMAN 100 UNIT/ML 3 ML VIAL SQ PRN ×4 (07:05→21:20)
--- NOTE | 2022-06-28 07:06 | NUR ---
INSULIN NOT ADMINISTERED DUE TO BS @ 130.
--- NOTE | 2022-06-28 07:35 | NUR ---
FILM EDITOR SUPERVISOR OPENING NOTE Patient sitting on chair, A/O x 4, able to make needs known. On O2 at 2 LPM via NC, no SOB or s/s of distress notes. IV access on RAC #20 SL intact and patent. On tele monitoring showing SR, HR on the 70's. Denies any pain ro discomfort at this time. Safety precautions in p lace: bed in low, locked position; siderails up x2; call light within reach. Will continue to monitor.
[2022-06-28] MEDS: ATENOLOL 50 MG TABLET PO SCH (08:24)
[2022-06-28] MEDS: LOSARTAN POTASSIUM 50 MG TABLET PO SCH (08:25)
[2022-06-28 08:55] LABS: EOSINOPHILS % (MANUAL) 2 % (0-4); LYMPHOCYTES % (MANUAL) 14 % (16-48); MONOCYTES % (MANUAL) 12 % (0-11.0); NEUTROPHILS % (MANUAL) 72 (42-76)
[2022-06-28] MEDS: hydrALAZINE HCL 50 MG TABLET PO SCH ×2 (09:00→17:08)
[2022-06-28] MEDS ORDERED: glyBURIDE 2.5 MG TABLET PO SCH (09:00)
[2022-06-28] MEDS ORDERED: hydrALAZINE HCL 50 MG TABLET PO SCH (09:00)
[2022-06-28] MEDS: METFORMIN 500 MG TABLET PO SCH ×2 (09:23→17:07)
[2022-06-28] MEDS: POTASSIUM CHLORIDE 20 MEQ TAB.PRT.SR PO SCH ×3 (09:23→11:29)
[2022-06-28] MEDS: FUROSEMIDE 40 MG/4 ML VIAL IV SCH ×3 (09:23→17:06)
--- NOTE | 2022-06-28 09:30 | NUR ---
RN NOTE Hydralazine 100 mg changed to BID, morning dose 0900 already given.
[2022-06-28 09:56] LABS: THYROID STIMULATING HORMONE 3.114 uIU/mL (0.358-3.74)
[2022-06-28] MEDS ORDERED: MAGNESIUM OXIDE 400 MG TABLET PO ONE (10:00)
--- NOTE | 2022-06-28 10:00 | NUR ---
RN NOTE Followed up with AMITA Storeyphysician primary care sports medicine nurse for wound care consult. Per Cordelia, she is in [facility] and will see patient tomorrow AM.
[2022-06-28] MEDS ORDERED: SOD FERRIC GLUC 125 MG in IV NS 0.9% 100 ML IV SCH (14:00)
[2022-06-28] MEDS: glyBURIDE 5 MG TABLET PO SCH (17:11)
[2022-06-28 17:51] LABS: BILIRUBIN,URINE NEGATIVE (NEGATIVE); COLOR,URINE YELLOW (YELLOW); LEUKOCYTE ESTERASE ,URINE NEGATIVE (NEGATIVE); NITRITE, URINE NEGATIVE (NEGATIVE); PH,URINE 6.5 (5.0-8.0); PROTEIN,URINE NEGATIVE (NEGATIVE); UGLUCOSE NEGATIVE (NEGATIVE); UROBILINOGEN,URINE 0.2 EU/dL (0.2)
--- NOTE | 2022-06-28 19:37 | NUR ---
RN OPENING NOTE PATIENT AWAKE IN CHAIR AT BEDSIDE. A/OX4. NO S/S OF DISTRESS, BREATHING WITHOUT DIFFICULTY ON 2L NC. RAC #20 SL INTACT AND PATENT. TELE READS SR 80. SAFETY MEASURES IN PLACE: BED LOCKED AND AT LOWEST POSITION, RAILS UP X2, CALL KUMAR WITHIN REACH. WILL CONTINUE TO MONITOR PATIENT.
--- NOTE | 2022-06-28 19:40 | NUR ---
TRICK RODEO RIDER CLOSING NOTE Patient sitting on chair, A/O x 4, able to make needs known. On O2 at 2 LPM via NC, no SOB or s/s of distress notes. IV access on RAC #20 SL intact and patent. On tele monitoring showing SR, HR on the 80's. Denies any pain or discomfort at this time. Wound care done. All needs attended to. Due meds given. Safety precautions in p lace: bed in low, locked position; siderails up x2; call light within reach. Will endorse to rn shift mgr nurse for JR.
[2022-06-28] MEDS: ENOXAPARIN SODIUM 40 MG/0.4 ML DISP.SYRIN SQ SCH (21:21)
[2022-06-28] MEDS ORDERED: SIMVASTATIN 20 MG TABLET PO SCH (22:00)
[2022-06-28] MEDS: TRAZODONE 50 MG TABLET PO SCH (22:18)
[2022-06-29] VITALS: BP 149/83
[2022-06-29] MEDS: HYDROCODONE/APAP 10/325MG TABLET PO PRN (03:31)
[2022-06-29 04:00] VITALS: BP 133/74
[2022-06-29 05:49] LABS: BASOPHILS % (AUTO) 0.5 % (0.0-2.0); HEMATOCRIT 24 % (39-51); HEMOGLOBIN 7.3 g/dL (13.5-17.5); LYMPHOCYTES # (AUTO) 0.4 K/uL (0.8-4.8); LYMPHOCYTES % (AUTO) 8.9 % (20.0-44.0); MEAN CORPUSCULAR HGB CONC 30 g/dl (31.0-36.0); MEAN CORPUSCULAR VOLUME 67 fL (80-96); MONOCYTES # (AUTO) 0.6 K/uL (0.1-1.30); MONOCYTES % (AUTO) 13.5 % (2.0-12.0); NEUTROPHILS # (AUTO) 3.1 K/uL (1.8-8.9); NEUTROPHILS % (AUTO) 75.1 % (43.0-81.0); PLATELET COUNT (AUTO) 136 K/uL (150-450); RED BLOOD CELL COUNT(AUTO) 3.64 MIL/uL (4.5-6.0); WHITE BLOOD COUNT (AUTO) 4.1 K/uL (4.3-11.0)
[2022-06-29] MEDS: INSULIN REGULAR, HUMAN 100 UNIT/ML 3 ML VIAL SQ PRN (06:09)
[2022-06-29 06:18] LABS: ALBUMIN 3.4 g/dL (3.4-5.0); BILIRUBIN,TOTAL 0.4 mg/dL (0.2-1.0); CALCIUM, SERUM 8.6 mg/dL (8.5-10.1); CREATININE 1.1 mg/dL (0.6-1.3); PHOSPHORUS 4.9 mg/dL (2.5-4.9); POTASSIUM 3.7 mmol/L (3.5-5.1); TOTAL PROTEIN, SERUM 6.9 g/dL (6.4-8.2)
[2022-06-29 06:21] LABS: MAGNESIUM 1.2 mg/dL (1.8-2.4)
--- NOTE | 2022-06-29 06:57 | NUR ---
RN CLOSING NOTE PATIENT ASLEEP IN BED. A/OX4. NO S/S OF DISTRESS, BREATHING WITHOUT DIFFICULTY ON ROOM AIR W/ 2L NC PRN. RAC #20 SL INTACT AND PATENT. TELE SR 81. SAFETY MEASURES IN PLACE: BED LOCKED AND AT LOWEST POSITION, RAILS UP X2, CALL KUMAR WITHIN REACH. WILL ENDORSE TO NEXT SHIFT FOR JR.
--- NOTE | 2022-06-29 07:41 | NUR ---
WOUND CARE CONSULT: PT SEEN FOR OPEN AREA TO LEFT POPLITEAL REGION, PRESENT ON ADMISSION. RECOMMENDATIONS MADE FOR SKIN PROTECTION AND WOUND CARE. DISCUSSED WITH NURSING STAFF. DR TIFFANY MARINO CALLED FOR SURGICAL CONSULT. MD IN AGREEMENT WITH PLAN OF CARE.
[2022-06-29] MEDS: FUROSEMIDE 40 MG/4 ML VIAL IV SCH ×2 (07:47→11:00)
[2022-06-29] MEDS: POTASSIUM CHLORIDE 20 MEQ TAB.PRT.SR PO SCH ×4 (07:47→09:38)
[2022-06-29] MEDS: BLOOD SUGAR DIAGNOSTIC 1 EACH STRIP IN SCH (07:47)
[2022-06-29 08:00] VITALS: BP 132/77
[2022-06-29] MEDS: hydrALAZINE HCL 50 MG TABLET PO SCH (08:51)
[2022-06-29] MEDS: METFORMIN 500 MG TABLET PO SCH (08:51)
[2022-06-29] MEDS: LOSARTAN POTASSIUM 50 MG TABLET PO SCH (08:51)
[2022-06-29 08:52] VITALS: BP 137/77
[2022-06-29] MEDS: ATENOLOL 50 MG TABLET PO SCH (08:52)
[2022-06-29] MEDS: glyBURIDE 5 MG TABLET PO SCH (08:54)
[2022-06-29] MEDS ORDERED: CLOTRIMAZOLE/BETAMETASONE DIPROPIONATE 15 GM TUBE TP SCH (09:00)
--- NOTE | 2022-06-29 09:17 | NUR ---
ICU CLERK OPENING NOTE Patient sitting on chair, A/O x 4, able to make needs known. On O2 at 2 LPM via NC, no SOB or s/s of distress notes. IV access on RAC #20 dislodged, new IV access on Right hand #22 intact and patent. On tele monitoring showing SR, HR on the 80's. Safety precautions in p lace: bed in low, locked position; siderails up x2; call light within reach. Will continue to monitor.
--- NOTE | 2022-06-29 10:00 | NUR ---
RN NOTE Dr. Yohannes Salamanca notified that patient magnesium is 1.2. No new orders at this time. Patient states that he wants to leave AMA.
--- NOTE | 2022-06-29 11:25 | NUR ---
RN NOTE Patient left AMA. Explained the risks of leaving, patient still wanted to leave. Galen, charge nurse and Dr Yohannes Motta notified. Wound care done on left popliteal area. Verbal instructions given to patient to follow up with PCP and go to an outpatient wound clinic for wound management. Patient verbalized understanding. Very adamant to leave. Left unit with girlfriend via private car.
[2022-06-29] MEDS ORDERED: MAGNESIUM OXIDE 400 MG TABLET PO ONE (14:00)
[2022-06-29] MEDS ORDERED: Magnesium 1GM/D5W 100ML PREMIX 100 ML IV SCH (15:00)
== END 2022-06-29 11:20 | disposition left against medical advice (07) | DRG 194 ==
LOC: ER 17:52 → TELE 20:16
PROVIDERS: ADMIT Nurse Practitioner Acute Care
DX: I11.0 Hypertensive heart disease with heart failure (principal); J96.01 Acute respiratory failure with hypoxia; E87.1 Hypo-osmolality and hyponatremia; S81.809A Unspecified open wound, unspecified lower leg, initial encounter; E11.9 Type 2 diabetes mellitus without complications; D50.9 Iron deficiency anemia, unspecified; E66.01 Morbid (severe) obesity due to excess calories; E78.5 Hyperlipidemia, unspecified; I50.33 Acute on chronic diastolic (congestive) heart failure; Z20.822 Contact with and (suspected) exposure to COVID-19; F41.9 Anxiety disorder, unspecified; Z53.29 Procedure and treatment not carried out because of patient's decision for other reasons; Z90.49 Acquired absence of other specified parts of digestive tract; Z79.51 Long term (current) use of inhaled steroids; Z79.84 Long term (current) use of oral hypoglycemic drugs; Z79.899 Other long term (current) drug therapy; R79.89 Other specified abnormal findings of blood chemistry; G47.33 Obstructive sleep apnea (adult) (pediatric); E83.42 Hypomagnesemia; Z68.42 Body mass index [BMI] 45.0-49.9, adult; X58.XXXA Exposure to other specified factors, initial encounter; Y92.9 Unspecified place or not applicable; R60.1 Generalized edema
CPT/HCPCS: 36415; 71045-TC; 80048-TC; 80053-TC; 80061-TC; 80076-TC; 82962-TC; 83540-TC; 83735-TC; 83880; 84100-TC; 84439-TC; 84443-TC; 84484-TC; 85025-TC; 85378-TC; 85730-TC; 87081-TC; 93307-TC; 93970-TC; A6253; C9803; G0378; J1650; J1815; J1940; J2310; J2916; J7030